=== PATIENT | female | born 1955 | race Caucasian/White ===

== ENCOUNTER → 2018-10-11 | Outpatient (CLI) | payer OTHER | LOC: NUC 05-03 14:34 | DX: M85.88 Other specified disorders of bone density and structure, other site (principal) ==

== ENCOUNTER → 2018-10-25 | Outpatient (CLI) | payer OTHER ==
--- NOTE | 2018-11-01 16:44 | SLE ---
[facility] [place] [address] POLYSOMNOGRAPHY STUDY Name: ELENODREW Karla Room #: [facility]#: [id number] Admission: 10/25/18 Attend Phys: Portillo Weinberg MD Discharge: Date of : 51 Report #: [id number] THIS REPORT FOR: //name// CC: Portillo Weinberg [facility] Alberto Herron MD DATE OF SERVICE: 10/25/2018 ATTENDING PHYSICIAN: Dr. Alberto Herron. HISTORY OF PRESENT ILLNESS: The patient is a 63-year-old who weighs 193 pounds with a BMI of 36.5. The patient had a previous sleep study, which showed moderate sleep apnea and also moderate to severe nocturnal hypoxia. The patient was referred back for CPAP titration study performed at [facility]. During the night study, the patient spent 468 minutes in bed and slept for 147 minutes with a low sleep efficiency of 31%. Sleep latency was short at 0.1 minutes with an absent REM sleep. Overall, sleep architecture showed increased stage 1 sleep, normal stage 2 sleep, normal slow wave and absent REM sleep. EKG monitoring revealed an average heart rate of 62 beats per minute. No sustained arrhythmias observed. PLMS were seen at an index of 14 per hour, but only 1 per hour caused EEG arousals. CPAP was initiated at 5 cm water and titrated up to 12 cm water. At the final pressure, the patient slept for 47 minutes. The patient's AHI was reduced to 0 per hour and oxygen saturation remained above 95%. The patient had a lateral sleep, but no supine or REM sleep was observed. IMPRESSION: 1. Moderate sleep apnea diagnosed with previous sleep study at an apnea-hypopnea index of 28 per hour. 2. Mild periodic limb movements during sleep without any significant EEG arousals. This does not need to be treated. 3. Reduced sleep efficiency resulting from sleep maintenance insomnia. RECOMMENDATIONS: 1. CPAP at 12 cm water completely eliminated the patient's sleep apnea and should be used on a nightly basis. 2. Follow up in 4-6 weeks to assess compliance with CPAP and to document clinical improvement. 3. Weight loss is strongly advised. 4. Avoid [employer] depressants. [facility] [address] [place] [address] POLYSOMNOGRAPHY STUDY Name: DREW JOHASNEN Room #: [facility]#: [id number] Admission: 10/25/18 Attend Phys: Portillo Weinberg MD Discharge: Date of : 51 Report #: [id number] 5. Cautioned regarding driving until symptoms of sleep apnea resolve with the use of CPAP. 6. If the patient has chronic insomnia, then it should be further evaluated and treated according to the etiology. <ELECTRONICALLY SIGNED> By: Portlilo Weinberg MD 11/01/18 1644 [id number] Portillo Weinberg MD /nt
== END ==
LOC: SLEEPLAB 10:46
DX: G47.33 Obstructive sleep apnea (adult) (pediatric) (principal); G47.30 Sleep apnea, unspecified; R09.02 Hypoxemia